=== PATIENT | female | born 1960 | race Caucasian/White ===

== ENCOUNTER 2016-04-19 05:54 | Day surgery (SDC) | payer OTHER ==
[~2016-04-19] VITALS: Ht 151.1 cm; Wt 85.0 kg
[~2016-04-19 05:54] MED LIST: ATEN25TA PO; VENL75CA PO
[2016-04-19] MEDS ORDERED: Propofol 10,000 mCg/mL 20 mL Inj ONE (05:55)
[2016-04-19] MEDS ORDERED: fentaNYL-PF 50 mCg/mL 2 mL Inj ONE (05:55)
[2016-04-19] MEDS ORDERED: CeFAZolin Inj 2 GM in IV Premix 1 EACH IV ONE (06:00)
[2016-04-19] MEDS: Lactated Ringer's 1,000 ML IV SCH ×3 (06:27→07:21)
[2016-04-19 06:32] VITALS: BP 134/78; PULSE 83; RESP 17; O2SAT 98
[2016-04-19] MEDS ORDERED: HYDR-4003 PO (06:39)
--- NOTE | 2016-04-19 06:44 | PCM.HPANE ---
Patient Data Surgeon Admitting Provider: Attending Provider:Jj Casillas DPM Primary Care Physician:Kandi Siegel Other Provider:Jonathon Beltre Anesthesia Reason for Visit Left Foot 4TH Metatarsal Orif Ht/WT & BMI Height (Feet): 5 Height (Inches): 0 Weight (Kilograms): 68 Body Mass Index 29.00 Allergies Coded Allergies: Penicillins (Verified Allergy, Unknown, UNKNOWN, 04/18/16) oxycodone (Verified Adverse Reaction, Severe, ITCHING, 04/18/16) Past Anesthesia History Anesthesia History: Denies:: Anesthesia Reactions, Malignant Hyperthermia Diabetes History Hx Diabetes?: No MRSA MRSA: No Medications Blood Thinner: Aspirin Home Meds Incl Beta Rosi: Yes Date Beta Rosi Taken: Apr 18, 2016 Time Beta Rosi Taken: 1899 Reported Medications Hydrocodone-Acetaminophen 5-325 mg 1 Each Tablet1 Tablet PO Q4H PRN For Pain Ref 0 04/19/16 Venlafaxine ER (Effexor XR)75 Mg [id number] Mg PO DAILY Ref 0 04/18/16 Atenolol 25 Mg [id number] Mg PO DAILY #30 TABLET Ref 0 04/18/16 Discontinued Reported Medications Aspirin 81 Mg [id number] Mg PO DAILY Ref 0 04/18/16 History History of ENT Problems?: Yes Other HEENT Pertinent History: S/P TONSILLECTOMY Hx of Heart Problems?: Yes Cardiovascular History: Positive for:: Hypertension Denies:: Heart Murmur Hx of Respiratory Problem?: No Respiratory History: Denies:: Use of C-PAP Machine Hx Neurologic Problems?: Yes Neurological History: Positive for:: CVA (08/2006) Hx of GI Problems?: No Hx of Problems?: No Female Hx: Denies:: Currently (S/P C/S X2) Skin History: Denies:: History Skin Disorders? Pressure Ulcers Hx Musculoskeletal Problems?: Yes Musculoskeletal History: Positive for:: Musculoskeletal Trauma (TRAUMA-DISPL. RT 4TH METATARSAL=CURRENT PROBLEM) Hx of Psycho/Social Problems?: Yes Psycho Social History: Positive for:: Anxiety Hx Depression Hx Surgeries?: Yes (TONSILLECTOMY,C/S X2) Hx Any Other Health Problems?: Yes Other History: Denies:: Cancer Endocrine Disease Hospitalization Thyroid Disease History Blood Transfusions: Denies:: Blood Transfusions Hx Diabetes: No Hx Alcohol Use: Yes ("SOCIAL")Have You Smoked inLast 12 mo: No Stop/Bang S-Snoring: Do You Snore Loudly: No T-Tired: feel tired, fatigued: No O-Obsered: Observed not breath: No P-Blood Pressure: treated: Yes B- Body Mass Index > 35 kg/m2: No A- Age over 50: Yes N- Neck Large Circumference: No G- Gender Male: No CATHERINE Total Score: 2 CATHERINE Risk Assessment: Low Risk, <3 Yes Risk Assessment Category Category 1A: Patient has history of documented sleep apnea, and HAS NOT received any narcotic, sedative or anesthesia administration during this stay. Category 1B: Patient has history of documented sleep apnea, and HAS received any narcotic , sedative or anesthesia administration during this stay Category 2: Patient has SUSPECTED Obstructive Sleep Apnea, and HAS received any narcotic , sedative or anesthesia administration during this stay. Category 3: Patient has SUSPECTED Obstructive Sleep Apnea and HAS NOT received narcotic, sedative or anesthesia administration during this stay. Category 4: Outpatient in Procedural Areas with known sleep apnea or who screen positive for High Risk via the STOP/BANG questionnaire. Exam Exam Vital Signs Vital Signs Date Time Temp Pulse Resp B/P Pulse Ox O2 Delivery O2 Flow Rate FiO2 04/19/16 06:32 36.4 83 17 134/78 98 Room Air General Appearance: Alert, Oriented X3, Cooperative, No Acute Distress HEENT/AIRWAY: MP 2 Lungs: Clear to Auscultation, Normal Air Movement Heart: Exam Unremarkable, Regular Rate/Rhythm, No Murmurs/Rubs/Gallops Meds/Labs/Diagnostics Admission Meds Current Medications Lactated Ringer's (Lr) 1,000 ml @ 120 mls/hr Q8H20M IV Last administered on t 06:27; Start 04/19/16 at 05:00; Stop 04/19/16 at 13:19 Plan Impression Patient chart reviewed, patient interviewed and anesthestic plan with risks, benefits, and alternatives discussed, and informed consent obtained. NPO Status: 04/18/162229 ASA Physical Status: ASA2 Mod Systemic Disease Anesthetic Plan: MAC Bene/Risks/Altern/Consents: Yes HP Complete Prior to Induction: Yes Nito Michaud MD Apr 19, 2016 06:44
[2016-04-19] MEDS ORDERED: Bupivacaine-MPF 0.5% 30 mL Inj NERVEBLOCK ONE (07:43)
[2016-04-19] MEDS ORDERED: Lactated Ringer's 500 ML IV PRN (07:43)
[2016-04-19] MEDS ORDERED: Lactated Ringer's 1,000 ML IV SCH (07:43)
[2016-04-19] MEDS ORDERED: Phenylephrine 10,000 mCg/mL Inj IVPUSH PRN (07:45)
[2016-04-19] MEDS ORDERED: Atropine 0.4 mg/mL Inj IVPUSH PRN (07:45)
[2016-04-19] MEDS ORDERED: EPHEDrine Sulfate 50 mg/mL Inj IVPUSH PRN (07:45)
[2016-04-19] MEDS ORDERED: hydrALAZINE 20 mg/mL Inj IVPUSH PRN (07:45)
[2016-04-19] MEDS ORDERED: Labetalol 5 mg/mL 4 mL Inj IV PRN (07:45)
[2016-04-19] MEDS ORDERED: MetoCLOpramide 5 mg/mL 2 mL Inj IVPUSH PRN (07:45)
[2016-04-19] MEDS ORDERED: Ondansetron 2 mg/mL 2 mL Inj IVPUSH PRN (07:45)
[2016-04-19] MEDS ORDERED: HYDROmorphone 1 mg/mL Inj IVPUSH PRN (07:45)
[2016-04-19] MEDS ORDERED: Lidocaine PF 1% 30 mL Inj NERVEBLOCK ONE (07:45)
[2016-04-19] MEDS ORDERED: Dexamethasone 4 mg/mL Inj IVPUSH PRN (07:45)
[2016-04-19] MEDS ORDERED: fentaNYL-PF 50 mCg/mL 2 mL Inj IVPUSH PRN (07:45)
[2016-04-19] MEDS ORDERED: Dexamethasone 4 mg/mL Inj INTRARTICU ONE (08:47)
--- NOTE | 2016-04-19 09:03 | PCM.SURGPO ---
Immediate Operative Note Date of Surgery: Apr 19, 2016 Pre Operative Diagnosis DISPLACED FRACTURE 4TH METATARSA;L LEFT FOOT Post Operative Diagnosis Displaced fracture 4th metatarsal left foot Procedure ORIF fracture 4th metatarsal left foot Surgeon and Logistics Engineer Surgeon: Jj Casillas DPM Assistants: None Findings fracture Complications There were no periprocedural complications identified. Surgical Specimen Removed: No Specimen sent to Pathology: Not applicable Anesthetic Administered: MAC Grafts, Implants: Grafts-See Implant Record Output, Estimated Blood Loss: 1 Blood Admin during surgery: No Jj Casillas DPM Apr 19, 2016 09:03
[2016-04-19 09:05] VITALS: BP 125/74; PULSE 75; RESP 18; O2SAT 97
--- NOTE | 2016-04-19 09:35 | PCM.ANEP1 ---
Post Anesthesia Phase 1 PACU Phase 1 Assessment Date of Service: Apr 19, 2016 Vital Signs Vital Signs Date Time Temp Pulse Resp B/P Pulse Ox O2 Delivery O2 Flow Rate FiO2 04/19/16 09:05 36.3 75 18 125/74 97 Room Air 04/19/16 06:32 36.4 83 17 134/78 98 Room Air Anesthetic Administered: MAC Level of Alertness: Awake, talking DELGADO's with Equal Strength: Yes Pain: No Nausea or Vomiting: No Oxygen Delivery: Room Air Lungs: Clear to Auscultation, Normal Air Movement Nito Michaud MD Apr 19, 2016 09:35
--- NOTE | 2016-04-19 09:53 | OP ---
[address] [address] OPERATIVE REPORT PATIENT: KENN QUIROZ : 1960 MR#: [id number] ADMIT: 04/19/2016 JOB ID: [id number] DATE OF SURGERY: 04/19/2016 SURGEON: Jj Casillas DPM. PREOPERATIVE DIAGNOSIS(ES): Displaced fracture, 4th metatarsal, left foot. POSTOPERATIVE DIAGNOSIS(ES): Displaced fracture, 4th metatarsal, left foot. SPECIFIC OPERATION PERFORMED: Open reduction and internal fixation of displaced fracture, 4th metatarsal, left foot. ANESTHESIA: Local plus IV sedation. HEMOSTASIS: Ankle pneumatic tourniquet at 250 mmHg x 69 minutes. ESTIMATED BLOOD LOSS: Minimal. INDICATIONS: The patient has a displaced fracture of the 4th metatarsal. After consideration of risks and benefits of both conservative and surgical treatment options, she elected to have the fracture fixated. DESCRIPTION OF PROCEDURE: The patient was brought to the operating room, placed on the operating table in the supine position and IV sedation administered. Following administration of IV sedation, 20 cc of a 1:1 mix of 1% Xylocaine plain and 0.5% Marcaine plain was infiltrated about the posterior tibial nerve and across the dorsal foot for local anesthesia. Pneumatic tourniquet was applied to the left ankle, and the left foot was then prepped and draped in the usual aseptic manner. Anesthesia was tested and found to be inadequate. An additional 20 cc of the same mixture was infiltrated primarily about the posterior tibial nerve for anesthesia. When anesthesia was tested at this point, it was found to be adequate. An Esmarch bandage was then applied from toes to heel to exsanguinate the foot. Tourniquet inflated to 250 mmHg, and Esmarch bandage removed. Attention directed to the dorsal aspect of the left foot where a 6 cm linear incision was made over the 4th metatarsophalangeal joint. The skin incision was deepened via sharp and blunt dissection with superficial vessels being ligated as needed and vital structures identified and retracted. Dissection was carried out down to the level of the 4th metatarsal. There was quite a bit of interstitial edema and fluid, and the 4th metatarsal was then identified. It was dissected distally. The fracture was readily apparent. The capsule of the 4th metatarsophalangeal joint was then sharply incised and opened, and the head of the 4th metatarsal exposed. At this time, it was appreciated that the fracture was displaced dorsal and medial. The fracture was oblique starting on the lateral surgical neck of the 4th metatarsal and then extending almost down just medial to the dorsal midline of the 4th metatarsal. Sterile finger traps were then utilized to provide distal traction on the digit. The fracture was then reduced. It was held in place with Verbrugge clamps. At this time a plate was put over the fracture. Unfortunately, because of the orientation of the fracture, there was no way to incorporate any type of interfragmentary fixation through the plate, and also, position of the plate was very difficult. Therefore, it was elected to first of all start with an interfragmentary screw. A 2-0 screw measuring 8 mm in length was then placed in lag fashion across the fracture for interfragmentary compression. At this time a 4-hole elbow plate was then held against the metatarsal. It was felt that this would be the most appropriate plate. The middle hole on the long arm of the elbow plate corresponded directly over the interfragmentary screw. Therefore, it was elected to leave this hole empty. At this time the plate was affixed across the fracture with 2-0 screws; proximal screw measuring 14 mm in length, the two distal screws measuring 16 and 18 mm in length. The Verbrugge was removed. The fracture was then stressed and found to be in good rigid fixation. There was no motion appreciated of either the plate or the fracture. The fracture appeared in good alignment. Intraoperative fluoroscopy was then utilized to evaluate the reduction and placement of the internal fixative devices. Reduction appeared to be achieved. There was a question as to the length of the two distal screws. These were felt to be a little big long. Deep palpation was performed on the plantar of the left foot. The screws could not be palpated plantarly. At this time it was elected to leave the screws in place, given the orientation of the fracture, the small structure of the bones and the likelihood of disruption of the good fixation that has been achieved. It was felt that would outweigh any problems if these longer screws could be removed since they can be removed after healing of the fracture should there be any discomfort from the screws. The site was then lavaged with sterile saline. The capsule and deep tissues were approximated with 4-0 Vicryl. The skin was then closed with 4-0 Prolene. Tincture of benzoin was then applied across the incision. Then, 4 mg dexamethasone was infiltrated for postoperative analgesia. Silvino silk and a dry sterile dressing were then applied to the foot. The tourniquet was released at 69 minutes, with immediate return of color to all digits. The patient was then removed from the operating room to day surgery with vital signs stable, capillary filling time within normal limits in all digits, with no apparent complications with surgery or anesthesia.
--- NOTE | 2016-04-19 11:01 | PCM.ANEP2 ---
Post Anesthesia Evaluation ASA/CMS Post Anesthesia VS in Patient's Normal Range?: Yes Resp Stable; Airway Patent?: Yes CV Function & Hydration Stable: Yes Mental Status Recovered?: Yes Pain control Satisfactory?: Yes N/V Control Satisfactory?: Yes Nito Michaud MD Apr 19, 2016 11:01
== END 2016-04-19 23:59 | disposition home or self-care (01) ==
LOC: SAS 05:54
PROVIDERS: ATTEND Podiatrist
DX: S92.342A Displaced fracture of fourth metatarsal bone, left foot, initial encounter for closed fracture (principal); S92.355A Nondisplaced fracture of fifth metatarsal bone, left foot, initial encounter for closed fracture; M79.672 Pain in left foot; X50.3XXA Overexertion from repetitive movements, initial encounter; Y93.01 Activity, walking, marching and hiking; Y92.831 Amusement park as the place of occurrence of the external cause; I10 Essential (primary) hypertension; Z79.82 Long term (current) use of aspirin
CPT/HCPCS: 28485; C1713; J0690; J1100; J2250; J3010; J7120